=== PATIENT | male | born 1995 | race Caucasian/White ===

== ENCOUNTER 2019-03-24 14:41 | Emergency (ER) | payer OTHER ==
[~2019-03-24] VITALS: Ht 182.9 cm; Wt 90.7 kg
[2019-03-24] MEDS ORDERED: NKM (14:43)
[2019-03-24 15:03] VITALS: BP 148/82
--- NOTE | 2019-03-24 15:15 | NUR ---
ED Nurse Note:pt. was BIBA for heroin overdose, he was given narcan by paramedics and pt. was A/Ox4 ambulatory on arrival, blood was sent to labs, he could't give urine, pt. was placed on lunchroom monitor
[2019-03-24 15:19] LABS: HEMATOCRIT 38.4 % (42.0-52.0); LYMPHOCYTES % (AUTO) 19.9 % (20.0-45.0); MEAN CORPUSCULAR VOLUME 84 FL (80-99); NEUTROPHILS % (AUTO) 67.2 % (45.0-75.0); PLATELET COUNT 220 K/UL (150-450); RED BLOOD COUNT 4.59 M/UL (4.70-6.10); RED CELL DISTRIBUTION WIDTH 11.1 % (11.6-14.8); WHITE BLOOD COUNT 8.4 K/UL (4.8-10.8)
[2019-03-24 15:34] LABS: ANION GAP 13 mmol/L (5-15); BLOOD UREA NITROGEN 12 mg/dL (7-18); CARBON DIOXIDE 27 MMOL/L (21-32); CHLORIDE 102 MMOL/L (98-107); CREATININE 1.1 MG/DL (0.55-1.30); POTASSIUM 3.2 MMOL/L (3.5-5.1); SODIUM 142 MMOL/L (136-145)
[2019-03-24 15:39] LABS: ALANINE AMINOTRANSFERASE 99 U/L (12-78); ALBUMIN 4.3 G/DL (3.4-5.0); ALBUMIN/GLOBULIN RATIO 1.3 (1.0-2.7); ALKALINE PHOSPHATASE 65 U/L (46-116); ASPARTATE AMINO TRANSFERASE 55 U/L (15-37); BILIRUBIN,TOTAL 0.6 MG/DL (0.2-1.0); CREATINE KINASE 740 U/L (26-308)
--- NOTE | 2019-03-24 15:56 | Diagnostic Imaging Report ---
Indication: Chest pain Comparison: None A single view chest radiograph was obtained. Findings: Cardiomediastinal appearance is within normal limits for age. Azygos lobe noted. The lungs are clear. Pulmonary vascularity is appropriate. The diaphragmatic contour is smooth and costophrenic angles are sharp. No pleural effusions are identified. The bones are unremarkable. Impression: No acute findings
--- NOTE | 2019-03-24 16:45 | Diagnostic Imaging Report ---
Indication: Headache Technique: Contiguous 5 mm thick transaxial imaging of the head obtained in a Siemens Sensation [address] scanner. Soft tissue and bone windows generated. Automatic Exposure Control was utilized. Total Dose length Product (DLP): 1449.[address] Dose Index Volume (CTDIvol): 70.38 mGy Comparison: none Findings: The size and configuration of the cortical sulci, basal cisterns, and ventricles are within normal limits for age. There is no mass effect, midline shift, or edema identified. There is no evidence of acute hemorrhage or abnormal intra-axial or extra-axial fluid collections. The bones and soft tissues are unremarkable. Mucosal thickening in ethmoid sinus noted. Impression: No mass effect, edema or acute bleed. The CT scanner at [facility] is accredited by the [employer] and the scans are performed using dose optimization techniques as appropriate to a performed exam including Automatic Exposure control.
[2019-03-24 17:54] VITALS: BP 132/73
--- NOTE | 2019-03-24 17:56 | NUR ---
ED Nurse Note:pt. was not able to urinate et, ER PA was notified
--- NOTE | 2019-03-24 18:01 | Emergency Room Report ---
History of Present Illness General Chief Complaint: Overdose Source: EMS Present Illness HPI 23-year-old male with extensive history of opiate abuse, brought in by the paramedics after overdosing on heroin today. Patient was already given a dose of Narcan 15 minutes prior to arrival. Patient is in no apparent distress at time of arrival. Ambulatory, responsive. Ears patient reports that he was sitting in his car and does not recall if he had any trauma today where he overdosed. Patient also reports that he had methamphetamine use, Xanax, and Adderall intake last night. Patient denies any chest pain, palpitation, abdominal pain, nausea vomiting. Patient reports mild ringing in the right ear however denies headache and dizziness. Denies blurry vision. Denies urinary symptoms. Patient reports that he is currently in rehab and has relapsed multiple times in the past. Allergies: Coded Allergies: No Known Allergies (Unverified , 03/24/19) Patient History Past Medical History: see triage record Past Surgical History: unable to obtain Pertinent Family History: none Social History: Reports: alcohol use, drug use - heroin, methamphetamine, xanax , adderral Immunizations: UTD Reviewed Nursing Documentation: PMH: Agreed; PSxH: Agreed Review of Systems All Other Systems: negative except mentioned in HPI Physical Exam Vital Signs Date Time Temp Pulse Resp B/P (MAP) Pulse Ox O2 Delivery O2 Flow Rate FiO2 03/24/19 14:36 98.4 86 20 150/83 (105) 96 Room Air Sp02 EP Interpretation: reviewed, normal General Appearance: alert, GCS 15, non-toxic, mild distress Head: normocephalic, atraumatic Eyes: bilateral eye normal inspection, bilateral eye PERRL ENT: normal ENT inspection, hearing grossly normal, normal pharynx, no angioedema Neck: normal inspection, full range of motion, supple, thyroid normal, no meningismus Respiratory: normal inspection, chest non-tender, lungs clear, normal breath sounds, no respiratory distress, no retraction, no wheezing Cardiovascular #1: normal inspection, regular rate, rhythm, no edema, no murmur , normal capillary refill Cardiovascular #2: 2+ carotid (R), 2+ carotid (L), 2+ radial (R), 2+ radial (L) , 2+ femoral (R), 2+ femoral (L), 2+ dorsalis pedis (R), 2+ dorsalis pedis (L) Gastrointestinal: normal inspection, non tender, soft, no mass, no guarding Rectal: deferred Genitourinary: no CVA tenderness Musculoskeletal: normal inspection, back normal, digits/nails normal Neurologic: alert, oriented x3, responsive, cerebellar normal, normal gait, speech normal, no Babinski Psychiatric: judgement/insight normal, memory normal, no suicidal/homicidal ideation, no delusions Skin: normal inspection, normal color, no rash, warm/dry, palpation normal Lymphatic: normal inspection, no adenopathy, axilla node tender (R) Medical Decision Making PA Attestation All my diagnosis and treatment plans were reviewed ad discussed with my supervising physician Dr. Colon Diagnostic Impression: Primary Impression: Opiate overdose Additional Impression: Amphetamine abuse ER Course 23-year-old male with extensive history of opiate abuse, brought in by the paramedics after overdosing on heroin today. Patient was already given a dose of Narcan 15 minutes prior to arrival. Patient is in no apparent distress at time of arrival. Ambulatory, responsive. Ears patient reports that he was sitting in his car and does not recall if he had any trauma today where he overdosed. Patient also reports that he had methamphetamine use, Xanax, and Adderall intake last night. Patient denies any chest pain, palpitation, abdominal pain, nausea vomiting. Patient reports mild ringing in the right ear however denies headache and dizziness. Denies blurry vision. Denies urinary symptoms. Patient reports that he is currently in rehab and has relapsed multiple times in the past. Ddx considered but are not limited to: generalized anxiety disorder, panic attack, depression with psychotic features, bipolar disorder, drug overdose Vital signs: are WNL, pt. is afebrile H&PE are most consistent with: Opiate overdose, amphetamine abuse ORDERS: CBC, CMP, UA, tox panel, EtOH level, NS bolus, Zofran, Pepcid ED INTERVENTIONS: IV fluids, Zofran Pepcid DISCHARGE: At this time pt. is stable for d/c to home. Will provide printed patient care instructions, and any necessary prescriptions. Care plan and follow up instructions have been discussed with the patient prior to discharge. Patient was discharged and transferred to rehab center. Patient stable at time of discharge CK 740, positive for amphetamine EKG Diagnostic Results Rate: normal Rhythm: NSR ST Segments: no acute changes CT/MRI/US Diagnostic Results CT/MRI/US Diagnostic Results : Imaging Test Ordered: Head CT no contrast Impression No acute intracranial abnormality Last Vital Signs Date Time Temp Pulse Resp B/P (MAP) Pulse Ox O2 Delivery O2 Flow Rate FiO2 03/24/19 17:54 98.4 73 15 132/73 99 Room Air Disposition: XFER TO PSYCH HOSP/UNIT Condition: Stable Referrals: NOT CHOSEN IPA/MD,REFERRING (PCP) Patient Instructions: Opioid Use Disorder, Stimulant Use Disorder-Amphetamines Lizzie Tavera Mar 24, 2019 18:01
--- NOTE | 2019-03-24 18:30 | NUR ---
ER DISCHARGE NOTE: Patient is cleared to be discharged per ERMD, pt is aox4, on room air, with stable vital signs. pt was given dc and prescription instructions, pt was able to verbalize understanding, pt id band and iv site removed without complications. pt is able to ambulate with steady gait. pt took all belongings.
[2019-03-24 18:48] VITALS: BP 132/73
--- NOTE | 2019-03-28 12:38 | Cardiology Report ---
APPROVED REPORT EKG Measurement Heart [id number] Normal sinus rhythm Incomplete right bundle branch block Borderline ECG
== END 2019-03-24 18:30 ==
LOC: EDBD 14:41 → EMR 16:55
DX: T40.601A Poisoning by unspecified narcotics, accidental (unintentional), initial encounter (principal); F15.10 Other stimulant abuse, uncomplicated; R07.9 Chest pain, unspecified; X58.XXXA Exposure to other specified factors, initial encounter; Y92.9 Unspecified place or not applicable
CPT/HCPCS: 36415; 70450; 71045; 80053; 82550; 85025; 93005; 96361; 96374; 96375; 99284; G0480; J2405; S0028; 80329